=== PATIENT | male | born 1950 | race Caucasian/White ===

== ENCOUNTER 2018-08-22 09:29 | Inpatient (IN) | payer BC ==
[2018-08-15 16:26] LABS: BASOPHILS % (AUTO) 0.8 % (0-1); EOSINOPHILS # (AUTO) 0.2 X10'3 (0-0.9); EOSINOPHILS % (AUTO) 3.3 % (0-6); LYMPHOCYTES # (AUTO) 1.5 X10'3 (1.1-4.8); LYMPHOCYTES % (AUTO) 26.2 % (21-51); MEAN CORPUSCULAR HEMOGLOBIN 29.9 PG (27.0-31.0); MEAN CORPUSCULAR HGB CONC 33.7 % (33.0-36.5); MEAN CORPUSCULAR VOLUME 88.9 FL (78-98); MEAN PLATELET VOLUME 9.6 FL (7.4-10.4); MONOCYTES # (AUTO) 0.7 X10'3 (0-0.9); MONOCYTES % (AUTO) 11.9 % (2-12); NEUTROPHILS # (AUTO) 3.4 X10'3 (1.8-7.7); NEUTROPHILS % (AUTO) 57.8 % (42-75); PRE OP HEMATOCRIT 43.3 % (42.0-52.0); PRE OP HEMOGLOBIN 14.6 g/dL (14.0-17.9); PRE OP PLATELET COUNT 201 X10'3 (140-440); RED BLOOD COUNT 4.87 X10'6 (4.70-6.10); RED CELL DISTRIBUTION WIDTH 15.1 % (11.5-14.5)
[2018-08-15 16:39] LABS: CLARITY,URINE CLEAR (Clear); COLOR,URINE YELLOW (Yellow); GLUCOSE, URINE NEGATIVE (Neg); KETONES,URINE TRACE mg/dl (Neg); LEUKOCYTE ESTERASE ,URINE NEGATIVE (Neg); NITRITES, URINE NEGATIVE (Neg); OCCULT BLOOD,URINE NEGATIVE (Neg); PH,URINE 6.5 (4.8-8.0); PROTEIN,URINE NEGATIVE (Neg); UROBILINOGEN,URINE 0.2 E.U/dL (0.2-1.0)
[2018-08-15 16:40] LABS: ALBUMIN 3.5 G/DL (3.4-5.0); ALBUMIN/GLOBULIN RATIO 0.9 (1.1-1.5); ALKALINE PHOSPHATASE 105 IU/L (46-116); BLOOD UREA NITROGEN 36 MG/DL (7-18); BUN/CREATININE RATIO 23.5 (5.4-32.0); CALCIUM 8.6 MG/DL (8.5-10.1); CHLORIDE 102 MMOL/L (99-107); CREATININE 1.53 MG/DL (0.60-1.10); PRE OP ALT 30 U/L (30-65); PRE OP ANION GAP 9 (8-16); PRE OP AST 21 U/L (10-37); PRE OP BILIRUB, TOTAL 0.4 MG/DL (0.0-1.0); PRE OP GLUCOSE 103 MG/DL (70-104); PRE OP POTASSIUM 4.2 MMOL/L (3.4-5.1); PRE OP SODIUM 138 MMOL/L (135-145); TOTAL CARBON DIOXIDE 26.8 MMOL/L (24-32); TOTAL PROTEIN 7.4 G/DL (6.4-8.2); eGFR 46 ML/MIN
[2018-08-15 16:41] LABS: UA COLLECTION TYPE CLN CATCH MIDSTREAM
[~2018-08-22] VITALS: Ht 177.8 cm; Wt 131.5 kg
[2018-08-22] VITALS (16 sets, daily range): BP systolic 89–156; BP diastolic 49–99
[2018-08-22] MEDS: potassium cl 20mEq in 1/2 NS 1,000 ML IV SCH ×3 (03:00→17:26)
[2018-08-22] MEDS: ketorolac tromethamine 15mg/ml inj. IV SCH ×3 (08:00→20:26)
[2018-08-22] MEDS: multivitamins, therapeutics tablet PO SCH (08:00)
[2018-08-22] MEDS: gabapentin 300mg capsule PO SCH ×3 (08:00→20:25)
[2018-08-22] MEDS: ascorbic acid 500mg tablet PO SCH ×2 (08:00→20:25)
[2018-08-22] MEDS: aspirin 325mg tablet PO SCH (08:30)
[~2018-08-22 09:29] MED LIST: HYDROmorphone 1 mg/ml syringe IV PRN; LOSA1TAB39 PO; OMEP20TA5 PO; SAWP1CAP PO; acetaminophen 325mg tablet PO ONE; acetaminophen 325mg tablet PO PRN; bisacodyl 10mg suppository rectal RC PRN; cefazolin/dext.iso 2gm/100 ML IV ONE; celeCOXIB 100mg capsule PO ONE; diphenhydrAMINE 25mg capsule PO PRN; famotidine 20mg tablet PO ONE; gabapentin 300mg capsule PO ONE; losartan 50mg tablet PO ONE; magnesium hydroxide 30ml (MOM) UD suspension PO PRN; metoclopramide 5 mg/ml inj IV ONE; non-formulary drug (Losartan/Hydrochlorothiazide (Losartan-Hctz 100-25 Mg Tab) 1 TAB) PO SCH; ondansetron/PF 4mg/2ml inj IV PRN; oxyCODONE SR 10mg (sust. release) tab -2 tabs (20mg) PO ONE; oxyCODONE/APAP 10/325mg tablet PO PRN; ringers solution, lacted 1,000 ML IV SCH; tranexamic acid inj. 1,000 MG in normal saline 100 ML IV ONE; vancomycin inj 1,500 MG in normal saline 300ml IV soln IV ONE
[2018-08-22] MEDS ORDERED: vancomycin 1,000mg inj ONE (10:40)
[2018-08-22] MEDS ORDERED: epiNEPHrine 1 mg/ml inj ONE (11:02)
[2018-08-22] MEDS ORDERED: ketorolac trometh. 30mg/ml inj. ONE (11:02)
[2018-08-22] MEDS ORDERED: cloNIDine hcl/PF 100mcg/ml inj ONE (11:03)
[2018-08-22] MEDS ORDERED: ROPIVAcaine 0.5% (5mg/ml) 30ml vial ONE (11:03)
[2018-08-22] MEDS ORDERED: fentaNYL/PF 50MCG/1 ML 2ML syringe ONE (12:01)
[2018-08-22] MEDS ORDERED: MIDAZolam 1mg/ml 10ml vial ONE (12:01)
[2018-08-22] MEDS ORDERED: BUPIVAcaine/dex-water/PF 7.5 mg/ml 2ml ampul ONE ×2 (12:03)
[2018-08-22] MEDS ORDERED: ringers solution, lacted 1,000 ML IV SCH (12:52)
[2018-08-22] MEDS ORDERED: morphine 4 MG/ML inj SYRINge IV PRN ×2 (12:55)
[2018-08-22] MEDS ORDERED: proCHLORperazine 10 MG/2 ml inj IV PRN (12:55)
[2018-08-22] MEDS ORDERED: ondansetron/PF 4mg/2ml inj IV PRN (12:55)
[2018-08-22] MEDS ORDERED: meperidine/PF 25mg/ml syringe IV PRN ×3 (12:55)
--- NOTE | 2018-08-22 14:33 | NUR ---
Received from OR via , accompanied by Anesthesiologist DR ANDINO and report given by Anesthesiolgist. AWAKENS TO VOICE. VITALS STABLE. DRESSING DI. SUHAIL PAIN. SENSATIION TO BILAT FEET. NOT MOVING LOWER EXTREMITIES. NICOLAS WITH CLEAR URINE.
--- NOTE | 2018-08-22 15:30 | NUR ---
Patient came to the floor at 1530. Patient was alert and oriented at time of arrival and had little to no feeling. Patient at bedside
--- NOTE | 2018-08-22 15:33 | NUR ---
Report called to receiving nurse. Transferred via BED Belongings . Special Issues communicated to receiving nurse. AWAKE AND ORIENTED. VITALS STABLE. DRESSING DIAgnieszka VELASQUEZ. TO ORTHO RM 4009B AT THIS TIME.
[2018-08-22] MEDS: cefazolin/dext.iso 2gm/100ml 100 ML IV SCH (17:25)
--- NOTE | 2018-08-22 18:30 | NUR ---
Patient in room ORTHO 4009. I have received report from GAYE Dickson and had the opportunity to ask questions and assume patient care. Patient worked with PT and is now sitting up having dinner.
[2018-08-22] MEDS ORDERED: tranexamic acid inj. 1,300 MG in normal saline 100ml IV soln 100 ML IV ONE (19:00)
[2018-08-22] MEDS ORDERED: sennosides 8.6mg tablet PO SCH (21:00)
[2018-08-23] MEDS: cefazolin/dext.iso 2gm/100ml 100 ML IV SCH ×2 (00:45→07:17)
[2018-08-23] MEDS: oxyCODONE/APAP 10/325mg tablet PO PRN ×4 (00:46→13:28)
[2018-08-23] MEDS: ketorolac tromethamine 15mg/ml inj. IV SCH (02:02)
[2018-08-23 02:06] VITALS: BP 119/68
[2018-08-23 05:54] LABS: BASOPHILS % (AUTO) 0 % (0-1); EOSINOPHILS # (AUTO) 0.1 X10'3 (0-0.9); EOSINOPHILS % (AUTO) 1.2 % (0-6); HEMATOCRIT 38.1 % (42.0-52.0); HEMOGLOBIN 12.9 g/dl (14.0-17.9); LYMPHOCYTES # (AUTO) 0.6 X10'3 (1.1-4.8); LYMPHOCYTES % (AUTO) 7.5 % (21-51); MEAN CORPUSCULAR HEMOGLOBIN 30.2 PG (27.0-31.0); MEAN CORPUSCULAR HGB CONC 33.8 % (33.0-36.5); MEAN CORPUSCULAR VOLUME 89.5 FL (78-98); MEAN PLATELET VOLUME 9.2 FL (7.4-10.4); MONOCYTES # (AUTO) 0.6 X10'3 (0-0.9); MONOCYTES % (AUTO) 7.2 % (2-12); NEUTROPHILS # (AUTO) 7.1 X10'3 (1.8-7.7); NEUTROPHILS % (AUTO) 84.1 % (42-75); PLATELET COUNT 165 X10'3 (140-440); RED BLOOD COUNT 4.26 X10'6 (4.70-6.10); RED CELL DISTRIBUTION WIDTH 14.2 % (11.5-14.5); WHITE BLOOD COUNT 8.5 X10'3 (4.5-11.0)
[2018-08-23 06:00] VITALS: BP 100/66
--- NOTE | 2018-08-23 06:10 | NUR ---
Patient in room ORTHO 4009. I have received report from ANNE-MARIE Carlisle RN and had the opportunity to ask questions and assume patient care.
[2018-08-23 06:13] LABS: ANION GAP 8 (8-16); CHLORIDE 100 MMOL/L (99-107); POTASSIUM 4.6 MMOL/L (3.5-5.1); SODIUM 133 MMOL/L (135-145); TOTAL CARBON DIOXIDE 24.7 MMOL/L (24-32)
--- NOTE | 2018-08-23 06:28 | NUR ---
Problems reprioritized. Patient report given, questions answered & plan of care reviewed with GAYE Carter.
[2018-08-23] MEDS ORDERED: pantoprazole 40mg Tablet.DR PO SCH ×2 (06:30→07:30)
[2018-08-23] MEDS: potassium cl 20mEq in 1/2 NS 1,000 ML IV SCH (06:52)
[2018-08-23] MEDS: gabapentin 300mg capsule PO SCH ×2 (07:18→13:28)
[2018-08-23] MEDS: aspirin 325mg tablet PO SCH (07:18)
[2018-08-23] MEDS: ascorbic acid 500mg tablet PO SCH (07:18)
[2018-08-23] MEDS: multivitamins, therapeutics tablet PO SCH (07:18)
[2018-08-23 07:20] VITALS: BP 136/78
[2018-08-23] MEDS ORDERED: HYDROchlorothiazide 25mg tablet PO SCH (08:00)
[2018-08-23] MEDS ORDERED: losartan 50mg tablet PO SCH (08:00)
[2018-08-23 10:00] VITALS: BP 140/95
[2018-08-23] MEDS ORDERED: ASPI-1 PO (10:40)
--- NOTE | 2018-08-23 12:26 | NUR ---
Joint replacement consult: Pt seen by [facility] for written/verbal high protein ed. [facility] reviewed high protein needs for wound healing, immune strength, high protein foods, and protein supplementation options. [facility] contact information provided in case of further questions. Declines additional proteins at this time. Addendum: 08/23/18 at [address] Amended: Links added.
[2018-08-23] MEDS ORDERED: celeCOXIB 100mg capsule PO SCH (20:00)
== END 2018-08-23 14:00 | disposition home or self-care (01) | DRG 470 ==
LOC: PAS IN 09:29 → EDSTATUS 13:15 → ORTHO 4S 13:30
PROVIDERS: ADMIT Orthopaedic Surgery; ATTEND Orthopaedic Surgery
PROC: 0SRD0J9 Replacement of Left Knee Joint with Synthetic Substitute, Cemented, Open Approach (ICD-10-PCS; principal; 2018-08-22 11:47)
DX: M17.12 Unilateral primary osteoarthritis, left knee (principal); D62 Acute posthemorrhagic anemia; I10 Essential (primary) hypertension; K21.9 Gastro-esophageal reflux disease without esophagitis; G47.33 Obstructive sleep apnea (adult) (pediatric); Z88.5 Allergy status to narcotic agent
CPT/HCPCS: 36415; 71046; 73560; 80051; 80053; 81003; 82948; 85025; 85610; 85730; 86885; 86900; 86901; 87070; 97110; 97116; 97161; 97530; A6449; A6455; A7000; C1713; C1758; C1776; G0378; J0171; J0690; J0735; J1170; J1885; J2250; J2765; J2795; J3010; J3370; J3490; J7030; J7120

== ENCOUNTER 2020-12-02 06:33 | Day surgery (SDC) | payer OTHER, MEDICARE ==
[2020-11-25 11:51] LABS: BASOPHILS % (AUTO) 0.8 % (0-1); EOSINOPHILS # (AUTO) 0.2 X10'3 (0-0.9); EOSINOPHILS % (AUTO) 3.1 % (0-6); LYMPHOCYTES # (AUTO) 0.9 X10'3 (1.1-4.8); LYMPHOCYTES % (AUTO) 16.2 % (21-51); MEAN CORPUSCULAR HGB CONC 33.6 g/dL (33.0-36.5); MEAN CORPUSCULAR VOLUME 92.2 FL (78-98); MEAN PLATELET VOLUME 9.1 FL (7.4-10.4); MONOCYTES # (AUTO) 0.7 X10'3 (0-0.9); MONOCYTES % (AUTO) 11.8 % (2-12); NEUTROPHILS # (AUTO) 3.8 X10'3 (1.8-7.7); NEUTROPHILS % (AUTO) 68.1 % (42-75); PRE OP HEMATOCRIT 41.2 % (42.0-52.0); PRE OP HEMOGLOBIN 13.8 g/dL (14.0-17.9); PRE OP PLATELET COUNT 151 X10'3 (140-440); RED BLOOD COUNT 4.47 X10'6 (4.70-6.10); RED CELL DISTRIBUTION WIDTH 14.6 % (11.5-14.5)
[2020-11-25 12:03] LABS: ALBUMIN 3.4 G/DL (3.4-5.0); ALBUMIN/GLOBULIN RATIO 0.9 (1.1-1.5); ALKALINE PHOSPHATASE 100 IU/L (46-116); BLOOD UREA NITROGEN 24 MG/DL (7-18); BUN/CREATININE RATIO 19.4 (5.4-32.0); CHLORIDE 105 MMOL/L (99-107); CREATININE 1.24 MG/DL (0.60-1.10); PRE OP ALT 23 U/L (30-65); PRE OP ANION GAP 8 (8-16); PRE OP AST 18 U/L (10-37); PRE OP BILIRUB, TOTAL 0.5 MG/DL (0.0-1.0); PRE OP GLUCOSE 123 MG/DL (70-104); PRE OP POTASSIUM 4.4 MMOL/L (3.4-5.1); PRE OP SODIUM 141 MMOL/L (135-145); TOTAL CARBON DIOXIDE 28.1 MMOL/L (24-32); TOTAL PROTEIN 7.1 G/DL (6.4-8.2); eGFR 58 ML/MIN
[2020-11-25 12:08] LABS: CALCIUM 8.2 MG/DL (8.5-10.1)
[2020-12-02] VITALS (12 sets, daily range): BP systolic 110–144; BP diastolic 69–85
[~2020-12-02] VITALS: Ht 175.3 cm; Wt 136.1 kg
[~2020-12-02 06:33] MED LIST changes: +FLO0.4C PO; -HYDROmorphone 1 mg/ml syringe IV PRN; -LOSA1TAB39 PO; +OLME-9 PO; -SAWP1CAP PO; +TADA10TA PO; -acetaminophen 325mg tablet PO ONE; -acetaminophen 325mg tablet PO PRN; -bisacodyl 10mg suppository rectal RC PRN; +ceFAZolin inj. 3,000 MG in normal saline 100ml IV soln 100 ML IV ONE; -cefazolin/dext.iso 2gm/100 ML IV ONE; -celeCOXIB 100mg capsule PO ONE; -diphenhydrAMINE 25mg capsule PO PRN; -gabapentin 300mg capsule PO ONE; -losartan 50mg tablet PO ONE; -magnesium hydroxide 30ml (MOM) UD suspension PO PRN; -metoclopramide 5 mg/ml inj IV ONE; -non-formulary drug (Losartan/Hydrochlorothiazide (Losartan-Hctz 100-25 Mg Tab) 1 TAB) PO SCH; -ondansetron/PF 4mg/2ml inj IV PRN; -oxyCODONE SR 10mg (sust. release) tab -2 tabs (20mg) PO ONE; -oxyCODONE/APAP 10/325mg tablet PO PRN; -tranexamic acid inj. 1,000 MG in normal saline 100 ML IV ONE; -vancomycin inj 1,500 MG in normal saline 300ml IV soln IV ONE
[2020-12-02] MEDS ORDERED: LIDOcaine 1% (10mg/ml) 2ml vial ONE (06:52)
[2020-12-02] MEDS ORDERED: BUPIVAcaine/PF 2.5 mg/ml (0.25%) 30ml vial ONE (08:15)
[2020-12-02] MEDS ORDERED: BUPIVAcaine/PF 2.5mg/ml (0.25%) 10ml vial ONE (08:15)
[2020-12-02] MEDS ORDERED: BUPIVACAINE liposomal/PF 13.3 MG/ML vial IM ONE (08:15)
[2020-12-02] MEDS ORDERED: LIDOcaine 1% 30ml preserv. free vial ONE (08:15)
[2020-12-02] MEDS ORDERED: fentaNYL /PF 50mcg/ml 5ml ampule ONE (08:43)
[2020-12-02] MEDS ORDERED: midazolam 1 mg/ML 2ml injection ONE (08:43)
[2020-12-02] MEDS ORDERED: sevoflurane 250ml liquid IH ONE (08:44)
[2020-12-02] MEDS ORDERED: dexamethasone sod phosphate 10mg/ml inj ONE (08:44)
[2020-12-02] MEDS ORDERED: rocuronium 10mg/ml inj IV ONE (08:45)
[2020-12-02] MEDS ORDERED: glycopyrrolate 0.2mg/ml inj ONE (08:45)
[2020-12-02] MEDS ORDERED: neostigmine methylsulfate 1 MG/ML 10ml vial ONE (08:45)
[2020-12-02] MEDS ORDERED: LIDOcaine 2% (20mg/ml) 5ml vial ONE (08:45)
[2020-12-02] MEDS ORDERED: propofol inj 20 ML IV ONE (08:45)
[2020-12-02] MEDS ORDERED: ondansetron/PF 4mg/2ml inj ONE (08:45)
[2020-12-02] MEDS ORDERED: labetalol 20mg/4ml (5mg/ml) syringe IV ONE (08:56)
[2020-12-02] MEDS ORDERED: labetalol 20mg/4ml (5mg/ml) syringe IV PRN (09:30)
[2020-12-02] MEDS ORDERED: morphine 2 MG/ML inj. syringe IV PRN (09:30)
[2020-12-02] MEDS ORDERED: fentaNYL/PF 50MCG/1 ML 2ML syringe IV PRN ×2 (09:30)
[2020-12-02] MEDS ORDERED: ondansetron/PF 4mg/2ml inj IV PRN (09:30)
[2020-12-02] MEDS ORDERED: ringers solution, lacted 1,000 ML IV SCH (09:30)
[2020-12-02] MEDS ORDERED: hydrALAZINE 20mg/ml inj. IV PRN (09:30)
--- NOTE | 2020-12-02 10:30 | NUR ---
RECEIVED PT FROM OR VIA MARGIE WITH ANESTHESIA -REPORT GIVEN, PT WAKING UP, DENIES PAIN, VSS, PIV TO LEFT FA 18G-LR RUNNING AT 40CC/HR, ABD BINDER IN PLACE, ISLAND DRSG TO BELLY BUTTON, 3 BANDAIDS ALL CDI.
[2020-12-02] MEDS ORDERED: oxyCODONE/APAP 5-325mg tablet PO PRN ×2 (10:40)
[2020-12-02] MEDS: morphine 4 MG/ML inj SYRINge IV PRN ×2 (11:38→12:07)
--- NOTE | 2020-12-02 12:00 | NUR ---
PT UP TRYING TO WALK, DRESSED, PAINFUL-AGREED TO PAIN MEDS, MORPHINE GIVEN.
--- NOTE | 2020-12-02 13:00 | NUR ---
PT UP TO W/C, DRESSED, AND HAS BEEN ABLE TO VOID, PAIN MANAGEABLE WITH PERCOCET, VSS, ABD BINDER IN PLACE WITH BANDAIDS X3 AND ISLAND DRSG TO [place]LLY BUTTON-CDI, PIV D/CD-CANNULA INTACT, D/C INSTRUCTIONS GIVEN TO PT-ALL QUESTIONS ANSWERED, GIVEN RX FOR PAIN MEDS, TAKEN VIA W/C WITH ALL BELONGINGS TO FAMILY IN VEHICLE.
== END 2020-12-02 13:00 | disposition home or self-care (01) ==
LOC: PAS 06:33
PROVIDERS: ATTEND Surgery
DX: K42.0 Umbilical hernia with obstruction, without gangrene (principal); N40.0 Benign prostatic hyperplasia without lower urinary tract symptoms; I10 Essential (primary) hypertension; M19.90 Unspecified osteoarthritis, unspecified site; K21.9 Gastro-esophageal reflux disease without esophagitis; E66.01 Morbid (severe) obesity due to excess calories; Z68.41 Body mass index [BMI] 40.0-44.9, adult; Z72.89 Other problems related to lifestyle; Z20.822 Contact with and (suspected) exposure to COVID-19; Z79.899 Other long term (current) drug therapy; Z96.653 Presence of artificial knee joint, bilateral; Z98.890 Other specified postprocedural states; Z80.3 Family history of malignant neoplasm of breast; Z80.1 Family history of malignant neoplasm of trachea, bronchus and lung; Z83.6 Family history of other diseases of the respiratory system
CPT/HCPCS: 36415; 49653; 64488; 80053; 82948; 85025; 93005; C1781; C9290; J0690; J1100; J2001; J2250; J2270; J2405; J2704; J2710; J3010; J3490; S2900; U0003; U0005; A4215; A4618; J7120